=== PATIENT | female | born 1975 | race Caucasian/White ===

== ENCOUNTER 2017-04-28 10:10 | Emergency (ER) | payer BC ==
[2017-04-28 10:24] VITALS: BP 126/79
[2017-04-28] MEDS ORDERED: Ketorolac 30 MG/ML SDV IVPUSH ONE (11:12)
[2017-04-28] MEDS ORDERED: Prochlorperazine 10 MG/2 ML SDV IVPUSH ONE (11:12)
[2017-04-28] MEDS ORDERED: diphenhydrAMINE 50 MG/ML SDV IVPUSH ONE (11:12)
[2017-04-28] MEDS ORDERED: Sodium Chloride 0.9% 10 ML Syringe FLUSH PRN (11:12)
--- NOTE | 2017-04-28 11:18 | EDM.PDOC ---
ED HPI GENERAL MEDICAL PROBLEM - General Chief Complaint: Headache Stated Complaint: MIGRAINE x 3 DAYS Time Seen by Provider: 04/28/17 11:03 Source of Information: Reports: Patient, Old Records (previous migraine ER visits.) History Limitations: Reports: No Limitations - History of Present Illness INITIAL COMMENTS - FREE TEXT/NARRATIVE: 41-year-old female presents for evaluation treatment of a migraine headache. Patient reports the migraine has been going on for the last 3 days. States that this is a typical migraine for her. She does struggle with migraines and has done so for the last few years. Reports pain on the right side of her head behind her right eye. Reports associated symptoms of nausea, vomiting, photophobia and phonophobia. Reports some neck discomfort associated with the migraine but no neck pain. No fevers. Denies any cough or cold symptoms such as sore throat, ear pain, sinus pressure or cough. Patient states that she has tried Tylenol, Advil and Tylenol PM without any relief. States that she has been on multiple medications in the past including imitrex, Fioricet and others. She is not on anything currently for her migraines. She did see her primary care provider, Dr. Paula, this week. Plan is to proceed with a referral to neurology for further evaluation. She has seen neurology in the past when she lived in [facility]. Currently rates the pain as a 9-10 out of 10. Patient reports an centimeter hysterectomy about 5 years ago the migraines did seem to improve slightly. 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 [No Known Home Meds] 04/28/17 [History] Past Medical History - Past Health History Medical/Surgical History: Denies Medical/Surgical History Neurological History: Reports: Migraines - Past Surgical History Female Surgical History: Reports: Section, Hysterectomy, Other (See Below) Social & Family History - Family History Family Medical History: Noncontributory - Tobacco Use Smoking Status *Q: Never Smoker Years of Tobacco use: 15 Second Hand Smoke Exposure: No - Caffeine Use Caffeine Use: Reports: Soda - Alcohol Use Days Per Week of Alcohol Use: 0 - Recreational Drug Use Recreational Drug Use: No - Living Situation & Occupation Living situation: Reports: Occupation: Employed [employer] GENERAL - Review of Systems Review Of Systems: See Below Constitutional: Denies: Fever HEENT: Reports: Other (reports photophobia and phonophobia). Denies: Ear Pain, Throat Pain Respiratory: Denies: Cough GI/Abdominal: Reports: Nausea, Vomiting Musculoskeletal: Denies: Neck Pain Neurological: Reports: Headache - Physical Exam Exam: See Below Exam Limited By: No Limitations General Appearance: Alert, WD/WN, Moderate Distress Eye Exam: Bilateral Eye: Normal Inspection, PERRL Ears: Normal External Exam, Normal Canal, Hearing Grossly Normal, Normal TMs Nose: Normal Inspection Throat/Mouth: Normal Inspection, Normal Lips, Normal Voice, No Airway Compromise Neck: Normal Inspection Respiratory/Chest: No Respiratory Distress, Lungs Clear, Normal Breath Sounds Cardiovascular: Normal Peripheral Pulses, Regular Rate, Rhythm, No Murmur Neuro Exam (Abbreviated): Alert, Oriented, Normal Cognition Psychiatric: Normal Affect, Normal Mood Skin Exam: Warm, Dry, Normal Color Course - Vital Signs Last Recorded V/S: Last Vital Signs Temp 37.3 C 04/28/17 10:22 Pulse 82 04/28/17 10:22 Resp 18 04/28/17 10:22 BP 126/79 04/28/17 10:22 Pulse Ox 98 04/28/17 10:22 - Orders/Labs/Meds Orders: Active Orders 24 hr Category Date Time Status Peripheral IV Care [RC] . DIRECTED Care 04/28/17 11:12 Active Peripheral IV Insertion Adult [OM.PC] Routine Oth 04/28/17 11:11 Ordered Meds: Medications Discontinued Medications Generic Name Dose Route Start Last Admin Trade Name Freq PRN Reason Stop Dose Admin Diphenhydramine HCl 50 mg 04/28/17 11:12 04/28/17 11:44 Benadryl IVPUSH 04/28/17 11:13 50 mg ONETIME ONE Administration Ketorolac Tromethamine 30 mg 04/28/17 11:12 04/28/17 11:45 Toradol IVPUSH 04/28/17 11:13 30 mg ONETIME ONE Administration Prochlorperazine Edisylate 10 mg 04/28/17 11:12 04/28/17 11:41 Compazine IVPUSH 04/28/17 11:13 10 mg ONETIME ONE Administration Sodium Chloride 10 ml 04/28/17 11:12 04/28/17 11:47 Saline Flush FLUSH 10 ml ASDIRECTED PRN Administration Keep Vein Open - Re-Assessments/Exams Free Text/Narrative Re-Assessment/Exam: 04/28/17 12:57 I checked on the patient. Migraine is nearly resolved. She feels comfortable going home. Will discharge home at this time. Discharge instructions as documented. Departure - Departure Time of Disposition: 12:58 Disposition: Home, Self-Care 01 Condition: Fair Clinical Impression: Migraine - Discharge Information Instructions: Migraine Headache Referrals: Melissa Paula MD [Primary Care Provider] - Forms: ED Department Discharge Additional Instructions: Go home and rest in a dark quiet room. Make sure you are drinking plenty of fluids Continue with your current plan of care; recommend seeing neurology as planned. Please return to the ER if your symptoms change or worsen. - My Orders Last 24 Hours: My Active Orders 04/28/17 11:11 Peripheral IV Insertion Adult [OM.PC] Routine 04/28/17 11:12 Peripheral IV Care [RC] . DIRECTED - Assessment/Plan Last 24 Hours: My Active Orders 04/28/17 11:11 Peripheral IV Insertion Adult [OM.PC] Routine 04/28/17 11:12 Peripheral IV Care [RC] . DIRECTED
== END 2017-04-28 13:05 | disposition home or self-care (01) ==
LOC: JD.ED 10:10
DX: G43.909 Migraine, unspecified, not intractable, without status migrainosus (principal); Z88.5 Allergy status to narcotic agent
CPT/HCPCS: 96374; 96375; 99284; J0780; J1200; J1885; J7050; 99283

== ENCOUNTER → 2022-11-22 | Day surgery (SDC) | payer BC ==
[~2022-11-22] MED LIST: Bupivacaine 0.25% 10 ML SDV ONE; HYDROmorphone 0.5 MG/0.5 ML Syringe IVPUSH PRN; Lactated Ringers 1,000 ML IV SCH; Lidocaine 1% 10 ML MDV ONE; Lidocaine 2% 100 MG/5 ML Syringe ONE; Midazolam 1 MG/ML 2 ML SDV ONE; Ondansetron 4 MG/2 ML SDV IVPUSH PRN; Propofol 200 MG/20 ML SDV ONE; Sodium Chloride 0.9% 10 ML Syringe FLUSH PRN; Sodium Chloride 0.9% 10 ML Syringe FLUSH SCH; Triamcinolone Acetonide 40 MG/ML 1 ML SDV ONE; ceFAZolin 2 GM Vial ONE; fentaNYL 100 MCG/2 ML SDV IVPUSH PRN; fentaNYL 100 MCG/2 ML SDV ONE
[2022-11-22 09:08] VITALS: BP 91/68; PULSE 54
== END | disposition home or self-care (01) ==
LOC: JD.SDS 06:45
PROVIDERS: ATTEND Orthopaedic Surgery
DX: G56.03 Carpal tunnel syndrome, bilateral upper limbs (principal); H61.23 Impacted cerumen, bilateral; F41.9 Anxiety disorder, unspecified; G43.909 Migraine, unspecified, not intractable, without status migrainosus; F32.A Depression, unspecified; E66.9 Obesity, unspecified; Z79.899 Other long term (current) drug therapy; Z88.5 Allergy status to narcotic agent; Z87.891 Personal history of nicotine dependence; Z68.33 Body mass index [BMI] 33.0-33.9, adult
CPT/HCPCS: 20526; 64721; J2250; J2704; J3010; J3301; J3490; J7120; 01810; J0690

== ENCOUNTER 2023-11-29 06:15 | Day surgery (SDC) | payer BC ==
[~2023-11-29 06:15] MED LIST changes: -Bupivacaine 0.25% 10 ML SDV ONE; -HYDROmorphone 0.5 MG/0.5 ML Syringe IVPUSH PRN; -Lactated Ringers 1,000 ML IV SCH; -Lidocaine 1% 10 ML MDV ONE; +Lidocaine 1% 5 ML VIAL ONE; -Lidocaine 2% 100 MG/5 ML Syringe ONE; -Ondansetron 4 MG/2 ML SDV IVPUSH PRN; -Triamcinolone Acetonide 40 MG/ML 1 ML SDV ONE; -ceFAZolin 2 GM Vial ONE; -fentaNYL 100 MCG/2 ML SDV IVPUSH PRN
[2023-11-29] MEDS ORDERED: Dexamethasone 4 MG/ML 5 ML MDV ONE (06:16)
[2023-11-29] MEDS: Lactated Ringers 1,000 ML IV SCH (06:45)
[2023-11-29] MEDS ORDERED: fentaNYL 100 MCG/2 ML SDV IVPUSH PRN (06:57)
[2023-11-29] MEDS ORDERED: HYDROmorphone 0.5 MG/0.5 ML Syringe IVPUSH PRN (06:57)
[2023-11-29] MEDS ORDERED: Ondansetron 4 MG/2 ML SDV IVPUSH PRN (06:57)
[2023-11-29] MEDS ORDERED: Ketorolac 30 MG/ML SDV ONE (07:02)
[2023-11-29 07:20] VITALS: BP 101/60; PULSE 77
[2023-11-29] MEDS: Bupivacaine 0.25% 10 ML SDV ONE (13:01)
[2023-11-29] MEDS: Lidocaine 1% 10 ML MDV ONE (13:04)
== END 2023-11-29 07:45 | disposition home or self-care (01) ==
LOC: JD.SDS 06:15
PROVIDERS: ATTEND Orthopaedic Surgery
DX: G56.02 Carpal tunnel syndrome, left upper limb (principal); E66.9 Obesity, unspecified; Z88.5 Allergy status to narcotic agent; Z68.30 Body mass index [BMI] 30.0-30.9, adult; Z79.899 Other long term (current) drug therapy
CPT/HCPCS: 64721; J0665; J1100; J1885; J2250; J2704; J3010; J7120; 01810; J3490